=== PATIENT | male | born 1985 | race Two or more races ===

== ENCOUNTER 2022-06-22 21:03 | Emergency (ER) | payer MEDICAID ==
[~2022-06-22] VITALS: Ht 185.4 cm; Wt 97.5 kg
--- NOTE | 2022-06-22 21:45 | NUR ---
BIBSELF C/O LEFT SIDE CHEST PAIN ALL DAY. PATIENT IS AAOX4. ABLE TO MAKE NEEDS KNOWN. PLACED COMFORTABLY IN BED. VITALS CHECKED.
--- NOTE | 2022-06-22 21:48 | NUR ---
SEEN BY DR ESQUIVEL AT BEDSIDE
--- NOTE | 2022-06-22 21:50 | NUR ---
EKG DONE. STRIP ATTACHED TO CHART.
--- NOTE | 2022-06-22 21:54 | NUR ---
[employer] COUNTER ASSOCIATE AT BEDSIDE
[2022-06-22] MEDS ORDERED: IBUPROFEN 400 MG TABLET ONE (21:58)
[2022-06-22] MEDS ORDERED: IBUPROFEN 400 MG TABLET PO ONE (22:00)
--- NOTE | 2022-06-22 22:01 | NUR ---
XRAY DONE AT BEDSIDE
[2022-06-22 22:13] LABS: BASOPHILS % (AUTO) 0.6 % (0.0-2.0); EOSINOPHILS % (AUTO) 4.6 % (0.0-6.0); HEMATOCRIT 44 % (39-51); HEMOGLOBIN 14.6 g/dL (13.5-17.5); LYMPHOCYTES # (AUTO) 2.3 K/uL (0.8-4.8); LYMPHOCYTES % (AUTO) 33.4 % (20.0-44.0); MEAN CORPUSCULAR HGB CONC 33 g/dl (31.0-36.0); MEAN CORPUSCULAR VOLUME 89 fL (80-96); MONOCYTES # (AUTO) 0.5 K/uL (0.1-1.30); MONOCYTES % (AUTO) 7.6 % (2.0-12.0); NEUTROPHILS # (AUTO) 3.8 K/uL (1.8-8.9); NEUTROPHILS % (AUTO) 53.8 % (43.0-81.0); PLATELET COUNT (AUTO) 199 K/uL (150-450); RED BLOOD CELL COUNT(AUTO) 4.98 MIL/uL (4.5-6.0)
[2022-06-22 22:39] LABS: CALCIUM, SERUM 9.2 mg/dL (8.5-10.1); CARBON DIOXIDE 29 mmol/L (21-32); CHLORIDE 105 mmol/L (98-107); CREATININE 1.2 mg/dL (0.6-1.3); GLUCOSE 112 mg/dL (74-106); POTASSIUM 4.4 mmol/L (3.5-5.1); SODIUM SERUM 140 mmol/L (136-145); UREA NITROGEN, BLOOD 17 mg/dL (7-18)
[2022-06-22 22:45] LABS: ALANINE AMINOTRANSFERASE 83 U/L (12-78); ALBUMIN 3.7 g/dL (3.4-5.0); ALKALINE PHOSPHATASE 80 U/L (46-116); ASPARTATE AMINOTRANSFERASE 61 U/L (15-37); BILIRUBIN,DIRECT 0.1 mg/dL (0.0-0.2); BILIRUBIN,TOTAL 0.3 mg/dL (0.2-1.0); TOTAL PROTEIN, SERUM 7.5 g/dL (6.4-8.2)
--- NOTE | 2022-06-22 23:51 | NUR ---
FF UP LAB FOR 2ND TROPONIN. PT MADE AWARE
--- NOTE | 2022-06-23 00:47 | NUR ---
Patient discharged to home in stable condition. Written and verbal after care instructions given. Patient verbalizes understanding of instruction.
[2022-06-23 00:56] VITALS: BP 123/87
== END 2022-06-23 00:56 | disposition home or self-care (01) ==
LOC: ER 21:12
DX: R07.89 Other chest pain (principal); F17.210 Nicotine dependence, cigarettes, uncomplicated; Z60.2 Problems related to living alone
CPT/HCPCS: 36415; 71045-TC; 80048-TC; 80076-TC; 84484-TC; 85025-TC; 85730-TC

== ENCOUNTER 2024-04-08 18:17 | Inpatient (IN) | payer MEDICAID, OTHER ==
[~2024-04-08] VITALS: Ht 185.4 cm; Wt 104.3 kg
[2024-04-08 18:32] LABS: BASOPHILS # (AUTO) 0.1 K/uL (0.0-0.2); BASOPHILS % (AUTO) 0.5 % (0.0-2.0); EOSINOPHILS % (AUTO) 0.2 % (0.0-6.0); HEMATOCRIT 40 % (39-51); HEMOGLOBIN 13.8 g/dL (13.5-17.5); LYMPHOCYTES # (AUTO) 1.3 K/uL (0.8-4.8); LYMPHOCYTES % (AUTO) 12.5 % (20.0-44.0); MEAN CORPUSCULAR HEMOGLOBIN 30 PG (26.0-33.0); MEAN CORPUSCULAR HGB CONC 35 g/dl (31.0-36.0); MEAN CORPUSCULAR VOLUME 87 fL (80-96); MONOCYTES % (AUTO) 9.3 % (2.0-12.0); NEUTROPHILS # (AUTO) 8.3 K/uL (1.8-8.9); NEUTROPHILS % (AUTO) 77.5 % (43.0-81.0); PLATELET COUNT (AUTO) 226 K/uL (150-450); RED BLOOD CELL COUNT(AUTO) 4.59 MIL/uL (4.5-6.0); RED CELL DISTRIBUTION WIDTH 13.1 % (11.5-15.0); WHITE BLOOD COUNT (AUTO) 10.7 K/uL (4.3-11.0)
[2024-04-08] MEDS: IV NS 0.9% 1,000 ML BAG IV ONE ×3 (18:33→23:29)
[2024-04-08 18:43] LABS: CALCIUM, SERUM 8.7 mg/dL (8.5-10.1); CARBON DIOXIDE 28 mmol/L (21-32); CHLORIDE 99 mmol/L (98-107); CREATININE 1.3 mg/dL (0.6-1.3); GLUCOSE 110 mg/dL (74-106); SODIUM SERUM 136 mmol/L (136-145); UREA NITROGEN, BLOOD 13 mg/dL (7-18)
[2024-04-08 18:46] LABS: PROTHROMBIN TIME 10.2 SECS (9.2-11.1)
[2024-04-08 18:47] LABS: INR 0.99 (0.91-1.10); PARTIAL THROMBOPLASTIN TIME 26.4 SEC (24.3-34.3)
[2024-04-08 18:49] LABS: ALANINE AMINOTRANSFERASE 36 U/L (12-78); ALKALINE PHOSPHATASE 69 U/L (46-116); ASPARTATE AMINOTRANSFERASE 44 U/L (15-37); BILIRUBIN,DIRECT 0.2 mg/dL (0.0-0.2); BILIRUBIN,TOTAL 0.7 mg/dL (0.2-1.0); TOTAL PROTEIN, SERUM 7.4 g/dL (6.4-8.2)
[2024-04-08 18:50] LABS: LACTIC ACID 1.6 mmol/L (0.4-2.0)
[2024-04-08 19:13] LABS: APPEARANCE,URINE Slightly Cloudy (CLEAR); BILIRUBIN,URINE SMALL (NEGATIVE); BLOOD, URINE Trace-intact Ery/uL (NEGATIVE); COLOR,URINE YELLOW (YELLOW); KETONES,URINE 15 mg/dL (NEGATIVE); LEUKOCYTE ESTERASE ,URINE Negative (NEGATIVE); NITRITE, URINE Negative (NEGATIVE); PROTEIN,URINE 100 mg/dl (NEGATIVE); UGLUCOSE Negative (NEGATIVE)
[2024-04-08] MEDS: AZITHROMYCIN 500 MG in IV D5W 250 ML IV ONE (19:30)
[2024-04-08] MEDS ORDERED: IV NS 0.9% 250 ML IV ONE (19:40)
[2024-04-08] MEDS ORDERED: CT SWABBABLE VALVE TRANS SET 1 EA INFUS.SET MC ONE (19:40)
[2024-04-08] MEDS ORDERED: IOHEXOL-350 100 ML VIAL IV ONE (19:40)
[2024-04-08 19:43] LABS: ADD URINE CULTURE NO; BACTERIA,URINE Few /HPF (None Seen); SQUAMOUS EPITHELIAL CELL,UR Few /HPF (None Seen); WBC,URINE 0-2 /HPF (0-3)
[2024-04-08] MEDS ORDERED: CEFTRIAXONE 1GM BAG (ER ONLY) 50 ML IV ONE (19:54)
[2024-04-08] MEDS ORDERED: AZITHROMYCIN 500 MG VIAL ONE (19:54)
[2024-04-08] MEDS: CEFTRIAXONE 1 G in IV D5W 50 ML IV ONE (19:56)
[2024-04-08] MEDS: HEPARIN INFUSION/D5W 500 ML IV PRN (20:20)
[2024-04-08] MEDS ORDERED: MAG HYDROX/AL HYDROX/SIMETH 30 ML UDC PO PRN (20:30)
[2024-04-08] MEDS ORDERED: MAGNESIUM HYDROXIDE 30 ML UDC PO PRN (20:30)
[2024-04-08] MEDS: dexaMETHasone SOD PHOSPHATE 10 MG/ML VIAL IV ONE (20:30)
[2024-04-08] MEDS ORDERED: ONDANSETRON HCL/PF 4 MG/2 ML VIAL IVP PRN (20:30)
[2024-04-08] MEDS ORDERED: ALBUTEROL FS 2.5 MG/3 ML VIAL.NEB NEB PRN (20:30)
[2024-04-08] MEDS ORDERED: Z GUARD REMEDY 4 OZ OINT TP PRN (20:30)
[2024-04-08] MEDS ORDERED: ACETAMINOPHEN 325 MG TABLET PO PRN (20:30)
[2024-04-08] MEDS ORDERED: MORPHINE SULFATE INJ 2 MG/ML DISP.SYRIN IV PRN (20:30)
[2024-04-08] MEDS ORDERED: IPRATROPIUM NEB FS 0.5 MG/2.5 ML AMPUL.NEB NEB PRN (20:30)
[2024-04-08 20:40] LABS: AMPHETAMINE, URINE NEGATIVE (NEGATIVE); BARBITURATE, URINE NEGATIVE (NEGATIVE); BENZODIAZEPINE, URINE NEGATIVE (NEGATIVE); CANNABINOID, URINE NEGATIVE (NEGATIVE); COCCAINE, URINE NEGATIVE (NEGATIVE); OPIATE, URINE NEGATIVE (NEGATIVE); PHENCYCLIDINE SCREEN,URINE NEGATIVE (NEGATIVE)
[2024-04-08] MEDS: ASPIRIN 81 MG TAB.CHEW PO ONE (20:52)
[2024-04-08] MEDS ORDERED: dexaMETHasone SOD PHOSPHATE 1 ML ONE (21:38)
[2024-04-08 23:15] VITALS: BP 79/66; O2SAT 90
[2024-04-08 23:30] VITALS: BP 84/64; O2SAT 92
[2024-04-08 23:45] VITALS: O2SAT 90
[2024-04-08] MEDS: HEPARIN SODIUM, PORCINE 5000 UNITS/1 ML VIAL IV ONE (23:46)
[2024-04-09] VITALS (24 sets, daily range): BP systolic 71–135; BP diastolic 41–95; TEMP 97.4–98.1; O2SAT 91–99
[2024-04-09] MEDS ORDERED: NOREPINEPHRINE 8 MG in IV D5W 242 ML IV PRN
[2024-04-09] MEDS: HEPARIN INFUSION/D5W 500 ML IV PRN (00:07)
[2024-04-09] MEDS: NOREPINEPHRINE 8MG/250ML RTU 0 ML IV ONE (00:32)
[2024-04-09 07:00] LABS: CALCIUM, SERUM 8.8 mg/dL (8.5-10.1); CREATININE 0.9 mg/dL (0.6-1.3); MAGNESIUM 2.3 mg/dL (1.8-2.4); POTASSIUM 4.7 mmol/L (3.5-5.1)
[2024-04-09 07:08] LABS: BASOPHILS % (AUTO) 0.3 % (0.0-2.0); HEMATOCRIT 40 % (39-51); HEMOGLOBIN 13.4 g/dL (13.5-17.5); LYMPHOCYTES % (AUTO) 13.4 % (20.0-44.0); MEAN CORPUSCULAR HEMOGLOBIN 29 PG (26.0-33.0); MEAN CORPUSCULAR HGB CONC 33 g/dl (31.0-36.0); MEAN CORPUSCULAR VOLUME 87 fL (80-96); MONOCYTES # (AUTO) 0.2 K/uL (0.1-1.30); MONOCYTES % (AUTO) 2.5 % (2.0-12.0); NEUTROPHILS % (AUTO) 83.8 % (43.0-81.0); PLATELET COUNT (AUTO) 202 K/uL (150-450); RED BLOOD CELL COUNT(AUTO) 4.63 MIL/uL (4.5-6.0); RED CELL DISTRIBUTION WIDTH 13.1 % (11.5-15.0); WHITE BLOOD COUNT (AUTO) 7.2 K/uL (4.3-11.0)
[2024-04-09 07:12] LABS: THYROID STIMULATING HORMONE 1.74 uIU/mL (0.358-3.74)
[2024-04-09] MEDS: PANTOPRAZOLE 40 MG TABLET.DR PO SCH (08:26)
[2024-04-09] MEDS ORDERED: HEPARIN SODIUM, PORCINE 5000 UNITS/1 ML VIAL IV ONE (09:00)
[2024-04-09] MEDS: dexaMETHasone SOD PHOSPHATE 4 MG/ML VIAL IV SCH (09:29)
[2024-04-09] MEDS: ATORVASTATIN 10 MG TABLET PO SCH (09:30)
[2024-04-09] MEDS: ASPIRIN 81 MG TAB.CHEW PO SCH (09:30)
[2024-04-09] MEDS: ENOXAPARIN SODIUM 100 MG/ML DISP.SYRIN SQ SCH (09:39)
[2024-04-09] MEDS: IV NS 0.9% 1,000 ML BAG IV SCH (10:30)
[2024-04-09] MEDS: CEFTRIAXONE 1 G in IV D5W 50 ML IV SCH (20:56)
[2024-04-09] MEDS: AZITHROMYCIN 500 MG in IV D5W 250 ML IV SCH (21:30)
[2024-04-10] VITALS: BP 90/67; TEMP 98.1; O2SAT 99
[2024-04-10 04:00] VITALS: BP 102/82; TEMP 98.5; O2SAT 97
[2024-04-10 06:49] LABS: BASOPHILS % (AUTO) 0.1 % (0.0-2.0); HEMATOCRIT 36 % (39-51); LYMPHOCYTES # (AUTO) 1.7 K/uL (0.8-4.8); LYMPHOCYTES % (AUTO) 14.1 % (20.0-44.0); MEAN CORPUSCULAR HEMOGLOBIN 29 PG (26.0-33.0); MEAN CORPUSCULAR HGB CONC 34 g/dl (31.0-36.0); MEAN CORPUSCULAR VOLUME 87 fL (80-96); MONOCYTES # (AUTO) 0.8 K/uL (0.1-1.30); MONOCYTES % (AUTO) 6.7 % (2.0-12.0); NEUTROPHILS # (AUTO) 9.6 K/uL (1.8-8.9); NEUTROPHILS % (AUTO) 79.1 % (43.0-81.0); PLATELET COUNT (AUTO) 217 K/uL (150-450); RED BLOOD CELL COUNT(AUTO) 4.11 MIL/uL (4.5-6.0); WHITE BLOOD COUNT (AUTO) 12.2 K/uL (4.3-11.0)
[2024-04-10 07:03] LABS: ALBUMIN 2.3 g/dL (3.4-5.0); BILIRUBIN,TOTAL 0.3 mg/dL (0.2-1.0); CALCIUM, SERUM 8.6 mg/dL (8.5-10.1); CREATININE 0.9 mg/dL (0.6-1.3); MAGNESIUM 2.1 mg/dL (1.8-2.4); PHOSPHORUS 4.1 mg/dL (2.5-4.9); TOTAL PROTEIN, SERUM 6.3 g/dL (6.4-8.2)
[2024-04-10 09:01] VITALS: BP 93/67
[2024-04-10] MEDS: SPIRONOLACTONE 25 MG TABLET PO SCH (09:01)
[2024-04-10] MEDS: CARVEDILOL 3.125 MG TABLET PO SCH (09:01)
[2024-04-10] MEDS ORDERED: SPIR25TA6 PO (11:23)
[2024-04-10] MEDS ORDERED: METH4TAB3 PO (11:23)
[2024-04-10] MEDS ORDERED: CARV3.122 PO (11:23)
[2024-04-11 08:10] LABS: HBSAG SCREEN Negative (Negative); HEPATITIS A AB, IgM Negative (Negative); HEPATITIS B CORE AB, IgM Negative (Negative); RAPID PLASMA REAGIN QUAL. Non Reactive (Non Reactive)
[2024-04-14 20:09] LABS: *MYCOPLASMA PNEUMONIAE IgG 326 U/mL (0-99); *MYCOPLASMA PNEUMONIAE IgM <770 U/mL (0-769)
== END 2024-04-10 12:50 | disposition home or self-care (01) | DRG 207 ==
LOC: ER 18:19 → ICU 20:26 → TELE 04-09 18:45
PROVIDERS: ADMIT Nurse Practitioner Acute Care; ATTEND Nurse Practitioner Acute Care
DX: I40.0 Infective myocarditis (principal); I21.4 Non-ST elevation (NSTEMI) myocardial infarction; E44.0 Moderate protein-calorie malnutrition; I50.21 Acute systolic (congestive) heart failure; I95.9 Hypotension, unspecified; B97.89 Other viral agents as the cause of diseases classified elsewhere; Z28.310 Unvaccinated for COVID-19; E66.9 Obesity, unspecified; Z68.30 Body mass index [BMI] 30.0-30.9, adult; F17.210 Nicotine dependence, cigarettes, uncomplicated; F14.90 Cocaine use, unspecified, uncomplicated; R09.02 Hypoxemia
CPT/HCPCS: 36415; 71045-TC; 80048-TC; 80053-TC; 80061-TC; 80076-TC; 81001; 83605-TC; 83735-TC; 84100-TC; 84443-TC; 84484-TC; 85025-TC; 85730-TC; 86403-TC; 86592; 86593; 86738; 87040-TC; 87070-TC; 87086-TC; 93307-TC; A4223; G0378; G0480; J0456; J0696; J1100; J1644; J1650; J7030; J7050; J7060; Q9967